=== PATIENT | female | born 1985 | race Caucasian/White ===

== ENCOUNTER 2017-04-05 20:02 | Emergency (ER) | payer MEDICAID, OTHER ==
[2017-04-05 20:08] VITALS: BP 120/71; BMI 18.3
--- NOTE | 2017-04-05 21:31 | DR.GENAD ---
HPI - PCP Primary Care Physician: Rosario Toribio - Complaint/Symptoms Chief Complaint Doctors Comments: WORSE TODAY. NO FEVER. HAVING LOWER ABDOMINAL PAIN ALSO. NO FEVER. Chief Complaint:: " Im pretty sure its a kidney infection lower back pain on right side been hurting bad." Self Treatment fo Chief Complaint: RIGHT FLANK PAIN TIMES FEW DAYS. - Nurses notes reviewed Nurses Notes Review: Yes - Source History Provided: Patient - Mode of Arrival Mode of Arrival: Ambulatory - Timing Onset of Chief Complaint: 04/03/17 Came on: Suddenly - Duration Duration: Constant Duration: Days - Severity Severity: Moderate PMH - PMH Past Medical History: Yes Past Medical History: Anxiety Past Surgical History: Yes Surgical History: - Family History History of Family Medical Conditions: Yes Family Medical History: [place] - Social History Alcohol Use: None Do you use any recreational Drugs:: No Lives With: Family Lives Where: Home - infectious screening Have you traveled outside the country in the last 6 months?: No ROS - Review of Systems Constitutional: No Symptoms Reported Eyes: No Symptoms Reported ENTM: No Symptoms Reported Respiratoy: No Symptoms Reported Cardiovascular: No Symptoms Reported Gastrointestinal/Abdominal: Abdominal Pain Genitourinary: Dysuria, Pain. negative: Frequency, Hematuria Neurological: No Symptoms Reported Musculoskeletal: Back Pain (RIGHT FLANK PAIN) Integumentary: No Symptoms Reported Hematologic/Lymphatic: No Symptoms Reported Endocrine: No Symptoms Reported PE - Vital Signs Vitals: Temperature 99.6 F Pulse Rate 97 Respiratory Rate 18 Blood Pressure [Right Arm] 112/83 Blood Pressure 120/71 O2 Sat by Pulse Oximetry 99 - General Limitations: No Limitations General Appearance: Alert - Head Head Exam: Normal Inspection - Eyes Eye exam: Normal Appearance - ENT ENT Exam: Normal External Ear Exam External Ear Exam: Normal External Inspection TM/Canal Exam: Bilateral Normal Nose Exam: Normal Nose Exam Mouth Exam: Normal Inspection Throat Exam: Normal Inspection - Neck Neck Exam: Normal Inspection - Chest Chest Inspection: Symmetric Chest Wall Rise - Respiratory Respiratory Exam: Normal Lung Sounds Bilat Respiratory Exam: Lower Clear to Auscultation - Cardiovascular Cardiovascular Exam: Regular Rate, Normal Rhythm, Normal Heart Sounds - Abdominal Exam Abdominal Exam: Normal Bowel Sounds, Soft. negative: Tenderness - Extremities Extremities Exam: Normal Inspection - Back Back Exam: negative: (R) CVA Tenderness - Neurologic Neurological Exam: Alert, Oriented X3 - Psychiatric Psychiatric Exam: Normal Affect, Normal Mood - Skin Skin Exam: Normal Color MDM - Additional Information Additional Information Obtained From: Family - Differential Diagnosis Differential Diagnosis: UTI,RT FLANK PAIN, KIDNEY STONE Course - Treatment Treatment: SEE ORDERS - Education/Counseling Education/Counseling: Patient, Family, Education Educated On: Diagnosis, Needs for Follow Up ROR - Labs Reviewed Laboratory Results Reviewed?: Yes Laboratory: 04/05/17 21:33 Urine,Clean Catch Urine Culture - Preliminary Specimen Type Clean catch urine 04/05/17 21:33 Urine Color Yellow (YELLOW) 04/05/17 21:33 Urine Appearance Cloudy (CLEAR) 04/05/17 21:33 Urine pH 6.0 (5.0 - 8.0) 04/05/17 21:33 Ur Specific Jones 1.015 (1.000-1.030) 04/05/17 21:33 Urine Protein 2+ (NEGATIVE) 04/05/17 21:33 Urine Glucose (UA) Negative (NEGATIVE) 04/05/17 21:33 Urine Ketones 3+ (NEGATIVE) 04/05/17 21:33 Urine Occult Blood 4+ (NEGATIVE) 04/05/17 21:33 Urine Nitrite Positive (NEGATIVE) 04/05/17 21:33 Urine Bilirubin Negative (NEGATIVE) 04/05/17 21:33 Urine Urobilinogen Normal (NORMAL) 04/05/17 21:33 Ur Leukocyte Esterase 3+ (NEGATIVE) 04/05/17 21:33 Urine RBC Tntc /HPF (NEGATIVE) 04/05/17 21:33 Urine WBC Tntc /HPF (NEGATIVE) 04/05/17 21:33 Ur Squamous Epith Cells Few /HPF (NEGATIVE) 04/05/17 21:33 Urine Bacteria 4+ /HPF (NEGATIVE) 04/05/17 21:33 Ur Culture Indicated? Yes/culture set up 04/05/17 21:33 - Diagnosis Discharge Problem: UTI (urinary tract infection) Qualifiers: Urinary tract infection type: site unspecified Hematuria presence: with hematuria Qualified Code(s): N39.0 - Urinary tract infection, site not specified ; R31.9 - Hematuria, unspecified - Discharge Plan Disposition: 01 HOME, SELF-CARE Condition: Stable Prescriptions: Sulfamethoxazole-Trimethoprim [Sulfatrim Pediatric 200-40 mg/5Ml] 20 ml PO Q12H #400 ml - Follow ups/Referrals Follow ups/Referrals: LAVERN TORIBIO [Primary Care Provider] - 3 days - Instructions Instructions: Urinary Tract Infection, [id number] Additional Instructions: RETURN TO ED IF WORSE.
[2017-04-05 21:40] LABS: BILIRUBIN,URINE NEGATIVE (NEGATIVE); BLOOD/HEMOGLOBIN,URINE 4+ (NEGATIVE); GLUCOSE, URINE NEGATIVE (NEGATIVE); KETONES,URINE 3+ (NEGATIVE); LEUKOCYTE ESTERASE ,URINE 3+ (NEGATIVE); NITRITES,URINE POSITIVE (NEGATIVE); PROTEIN,URINE 2+ (NEGATIVE); UROBILINOGEN,URINE NORMAL (NORMAL)
[2017-04-05 21:58] LABS: COLOR,URINE YELLOW (YELLOW)
[2017-04-05 21:59] LABS: APPEARANCE,URINE CLOUDY (CLEAR); BACTERIA,URINE 4+ /HPF (NEGATIVE); RBC,URINE TNTC /HPF (NEGATIVE); SQUAMOUS EPITHELIAL CELL,UR FEW /HPF (NEGATIVE)
[2017-04-05] MEDS ORDERED: BACTRIM DS TAB PO ONE (22:34)
[2017-04-05] MEDS ORDERED: MOTRIN TAB 600 MG PO ONE (22:35)
[2017-04-05] MEDS ORDERED: ADVIL SUSP 100 MG/5 ML PO ONE (23:17)
[2017-04-05] MEDS ORDERED: BACTRIM SUSP 20 ML PO ONE (23:18)
[2017-04-05] MEDS ORDERED: BACTRIM SUSP 20 ML ONE (23:21)
[2017-04-05] MEDS ORDERED: ADVIL SUSP 100 MG/5 ML ONE (23:22)
== END 2017-04-05 23:38 | disposition home or self-care (01) ==
LOC: ER 20:15
DX: N39.0 Urinary tract infection, site not specified (principal)
CPT/HCPCS: 81001; 87086; 87088; 87186; 99282